=== PATIENT | male | born 1965 | race African-American/Black ===

== ENCOUNTER 2017-08-04 08:08 | Inpatient (IN) ==
[2017-08-04] MEDS ORDERED: HYDROmorphone 2 MG/1 ML VIAL IV STA (08:45)
[2017-08-04] MEDS ORDERED: ONDANSETRON 4 MG/2 ML VIAL IV STA ×2 (08:45→08:59)
[2017-08-04] MEDS ORDERED: ONDANSETRON 4 MG/2 ML VIAL ONE (08:46)
[2017-08-04] MEDS ORDERED: HYDROmorphone 2 MG/1 ML VIAL ONE (08:46)
--- NOTE | 2017-08-04 08:54 | Emergency Department Note ---
Arrival - Arrival Chief Complaint: Extremity Injury Stated Complaint: dislocated left shoulder ED Nursing Triage Note: was exercising last night and thinks he pulled his left shoulder out of socket. reports pain with movement. Mode of Arrival: Ambulatory Limitations: No Limitations Source: Patient, RN Notes Reviewed Time Seen by Provider: 08/04/17 08:26 - History of Present Illness HPI Narrative: Patient is a 52-year-old black male recently followed by Dr. Wild for multiple myeloma. The patient fell last night and felt a pop in his left shoulder. Patient complains of pain in his left shoulder. He denies any numbness or weakness in his left hand. Onset (ago): day(s) (1) Consistency: constant Severity: moderate Quality: aching Allergies/Adverse Reactions: Allergies Allergy/AdvReac Type Severity Reaction Status Date / Time No Known Allergies Allergy Verified 07/10/17 10:14 Home Medications: Home Medications Medication Instructions Recorded Confirmed Type Atenolol 50 mg PO BEDTIME 05/09/16 08/04/17 History Citalopram [CeleXA] 40 mg PO QPM 05/22/16 08/04/17 History Doxycycline Hyclate 100 mg PO Q12H #14 capsule 07/10/17 08/04/17 Rx Ketorolac Tab [Toradol Tab] 10 mg PO Q6H PRN #15 tablet 07/10/17 08/04/17 Rx oxyCODONE/ACETAMINOPHEN 5-325 1 tablet PO Q4H PRN #15 tablet 07/10/17 08/04/17 Rx [Percocet 5-325] Allopurinol 100 mg PO BEDTIME PRN 08/04/17 08/04/17 History Hydrocodone/Acetaminophen [[place] 1 each PO Q6HR PRN #20 tablet 08/04/17 Rx 10-325 Tablet] Review of System - Review of System 12 point system: reviewed and no additional remarkable complaints except as stated - Review of System Constitutional: Absent: chills, fever Respiratory: Absent: cough Cardiovascular: Absent: chest pain Gastrointestinal: Absent: nausea, vomiting Medical,Surgical,& Family Hx - Medical History Cardio: History of: Hypertension Psychological: History of: Depression Neurology: No history of: Seizures HEENT: History of: Eye Problem (GLASSES) Respiratory: No history of: Pneumonia (Pneum Vac 2015), Respiratory Problems (Unknown Flu Vac) Musculoskeletal: History of: Musculoskeletal Problems (Back Injection 2009) Hematology: History of: Hematologic Cancer (multiple myeloma-currently being treated) Other: History of: Cancer (MULTIPLE MYLOMA-Dr. Wild), Miscellaneous Medical Problems (STEM CELL TRANSPLANT [place]) No history of: Anesthesia Reactions - Surgical History Abdominal Surgeries: Patient denies: Colonoscopy Orthopedic Surgeries: Surgical HX of;: Orthopedic Surgery (05/26/16 Pinning Rt Arm) - Family History Family History: Reports;: Family Cancer (FATHER BONE), Family Heart Disease ( MOTHER), Family Hypertension (MOTHER SISTER BROTHER), Family Stroke (FATHER) - Social History Smoking Status: Smoker, status unknown Exam Vital Signs: Vital Signs Temperature 98.5 F 08/04/17 08:21 Pulse Rate 91 H 08/04/17 09:45 Respiratory Rate 18 08/04/17 09:45 Blood Pressure 157/103 08/04/17 09:45 O2 Sat by Pulse Oximetry 97 08/04/17 09:45 GENERAL: This is a well-nourished well-developed black male in no apparent distress. VITAL SIGNS: Reviewed HEENT: Head is atraumatic and normocephalic. Pupils are equal round react to light. Extraocular movements are intact. Oropharynx is benign with moist mucous membranes. NECK: Neck is soft and supple without tenderness. There are no masses. There is no lymphadenopathy. LUNGS: Lungs are clear to auscultation. Chest rises symmetrically. There is no chest wall tenderness. CV: Heart is regular rate and rhythm without murmurs rubs or gallops. ABDOMEN: Abdomen is soft, nontender to palpation. There are no abdominal abnormal masses palpated. There is no organomegaly. Bowel sounds are present and active. SKIN: Skin is warm and dry. No rash. EXTREMITIES: Patient has an obvious deformity of the left humerus. There is tenderness to palpation overlying the mid humerus on the left. With passive range of motion there is reproducible pain and some crepitus. There is no pedal edema. NEUROLOGIC: Awake alert and oriented 4. Cranial nerves II through XII are grossly intact. Motor is 5 over 5 in all extremities bilaterally. Course - Consultations Consultation #1: Discussed with Dr. Morgan. Patient will be placed in a long-arm splint. Time: 09:00 Consultation #2: Discussed with Dr. Wild. Patient will be admitted to his service. Initial orders written for him. Time: 09:04 Results - Labs CBC & BMP: 08/04/17 08:54 08/04/17 08:54 Lab Results: I have reviewed the patients labs - Diagnostic Findings Procedure: X-ray: image reviewed by me (Left humerus x-ray: There is a pathologic fracture of the humerus proximal third.) Disposition Clinical Impression: Multiple myeloma, Left humeral fracture, Anemia Case discussed with: patient, patient's family Disposition: Still a Patient Condition: Stable New Prescriptions: Rx's Medication Instructions Recorded Hydrocodone/Acetaminophen [[place] 1 each PO Q6HR PRN #20 tablet 08/04/17 10-325 Tablet] Time of Disposition: 08:58
--- NOTE | 2017-08-04 09:00 | XRay Report ---
XR shoulder 2V LT, XR humerus LT Indication: Shoulder pain, midshaft humerus fracture Comparison: None Technique: Frontal views of the left shoulder were obtained in internal and external rotation as well as an axillary view of the left shoulder. Frontal and lateral views of the left humerus. Findings: Acute, mildly displaced fracture involving the proximal diaphysis of the humerus with moderate lateral apex angulation. There is no glenohumeral dislocation. IMPRESSION: As above. PROCEDURE INTERPRETED AT [facility] DEPARTMENT OF RADIOLOGY Final Report Signed by: Dr Jos Ash
[2017-08-04 09:04] LABS: Eosinophils % 0.2 % (0.00-10.9); Hematocrit 26.8 VOL% (42.0-52.0); Hemoglobin 9.3 GM/DL (14.0-18.0); Immature Granulocytes % 1.6 %; Immature Granulocytes Absolute 0.14 #; Lymphocytes # 1.6 10*3/uL (1.4-4.0); Lymphocytes % 18.1 % (21.2-54.2); Mean Corpuscular HGB Conc 34.7 GM/DL (32-36); Mean Corpuscular Hemoglobin 25 PG (27-34); Mean Platelet Volume 9.7 FL (9.6-12.0); Monocytes # 1.4 10*3/uL (0.11-0.8); Monocytes % 16.7 % (1.7-12.7); NRBC # 0.06 10*3/uL; Neutrophils # 5.5 10*3/uL (1.4-7.4); Neutrophils % 63.4 % (38.7-73.9); Platelet Count 241 T/CUMM (130-400); Red Blood Count 3.67 MC/CUMM (3.8-5.5); Red Cell Distribution Width 19.7 % (9.3-17.3); White Blood Count 8.6 T/CUMM (4-12)
[2017-08-04 09:40] LABS: Hypochromasia 1+; Lymphocytes 20 % (20-55); Nucleated Red Blood Cells 1 (0-5); Segmented Neutrophils 67 % (50-85); Total Cells Counted 100
[2017-08-04 09:41] LABS: Microcytosis 1+; Platelet Estimate Normal
[2017-08-04 09:42] LABS: Albumin 3.4 G/DL (3.4-5.0); Bilirubin,Total 0.4 MG/DL (0.2-1.0); Calcium 8.6 MG/DL (8.5-10.1); Osmolality,Calculated 272.8 MOS/KG (273-304); Potassium 4.4 MMOL/L (3.5-5.1); Total Protein 7.2 G/DL (6.4-8.3)
[2017-08-04] MEDS ORDERED: ALUMINUM/MAGNES/SIMETH MAX STR 30 ML UDCUP PO PRN (10:43)
[2017-08-04] MEDS ORDERED: HYDROmorphone 2 MG/1 ML VIAL IV PRN (10:43)
[2017-08-04] MEDS ORDERED: ONDANSETRON 4 MG/2 ML VIAL IV PRN (10:43)
[2017-08-04] MEDS ORDERED: MAGNESIUM HYDROXIDE SUSP 30 ML UDCUP PO PRN (10:43)
[2017-08-04] MEDS ORDERED: chlorproMAZINE INJ 50 MG in SODIUM CHLORIDE 0.9% 100 ML IV PRN (10:43)
[2017-08-04] MEDS ORDERED: BENZTROPINE 2 MG/2 ML AMP IV PRN (10:43)
[2017-08-04] MEDS ORDERED: TEMAZEPAM 7.5 MG CAPSULE PO PRN (10:43)
[2017-08-04] MEDS ORDERED: chlorproMAZINE INJ 25 MG in SODIUM CHLORIDE 0.9% 100 ML IV PRN (10:43)
[2017-08-04] MEDS ORDERED: diphenhydrAMINE CAP 25 MG CAPSULE PO PRN (10:43)
[2017-08-04] MEDS ORDERED: MYLANTA/LIDO VISC 2:1 300 ML BOTTLE SWISH/SWAL PRN (10:43)
[2017-08-04] MEDS ORDERED: LOPERAMIDE 2 MG CAPSULE PO PRN ×2 (10:43)
[2017-08-04] MEDS ORDERED: PROMETHAZINE INJ 25 MG in SODIUM CHLORIDE 0.9% 50 ML IV PRN (10:43)
[2017-08-04] MEDS ORDERED: traMADol 50 MG TABLET PO PRN (10:43)
[2017-08-04] MEDS ORDERED: LACTULOSE 20 GM/30 ML UDCUP PO PRN (10:43)
[2017-08-04] MEDS ORDERED: MYLANTA/LIDO VISC 2:1 300 ML BOTTLE SWISH/SPIT PRN (10:43)
[2017-08-04] MEDS ORDERED: ACETAMINOPHEN 325 MG TABLET PO PRN (10:43)
[2017-08-04] MEDS ORDERED: ALPRAZolam 0.25 MG TABLET PO PRN (10:43)
[2017-08-04] MEDS ORDERED: guaiFENesin 200 MG/10 ML UDCUP PO PRN (10:43)
[2017-08-04] MEDS ORDERED: chlorproMAZINE 25 MG TABLET PO PRN (10:43)
[2017-08-04] MEDS ORDERED: INFLUENZA VIRUS VACCINE 0.5 ML SYRINGE IM ONE (11:01)
[2017-08-04] MEDS: SODIUM CHLORIDE 0.9% 1,000 ML IV SCH (11:28)
--- NOTE | 2017-08-04 11:38 | XRay Report ---
XR chest 1V Indication: Multiple myeloma Comparison: Chest x-ray dated July 10, 2017 Technique: Single frontal view of the chest. Findings: The cardiomediastinal silhouette is stable in configuration. Chronic change of the lungs without focal consolidation, pleural effusion, or pneumothorax. Visualized osseous and surrounding soft tissue structures appear grossly unchanged. IMPRESSION: No acute cardiopulmonary process demonstrated. PROCEDURE INTERPRETED AT [facility] DEPARTMENT OF RADIOLOGY Final Report Signed by: Dr Jos Ash
--- NOTE | 2017-08-04 18:02 | Orthopedic Consult Note ---
History of Present Illness Chief complaint: Left humerus fracture History of present illness: Mr. Singer is a 52 year old male with history of sudden onset pain deformity left upper arm he was doing minimal activity when this occurred he does have a history of myeloma and it does have a history of a previous pathologic fracture for the right arm which I treated with an intramedullary nail of the right humerus he went on to heal that uneventfully at that time he was a patient of Dr. Nahun Fernandes. He presented [facility] emergency room this morning x-rays confirming a pathologic fracture of the diaphysis left humerus she has been splinted and admitted to Dr. Donahue his oncologist have been asked about regarding his orthopedic injury. Examination confirms well-developed nourished male he has no pain about the right upper extremity or either lower extremity the left arm is in a long-arm posterior splint he has intact neurovascular exam including the ability to actively extend the the digits and thumb and unable to extend the wrist due to the splint he describes instabilities intact volar as well as dorsal hand X-rays confirm a diaphyseal fracture to the left humerus. It does appear to be pathologic. Impression: Pathologic fracture left humeral shaft Plan: I discussed with him the diagnosis and treatment options including risks benefits and alternatives to surgery as before I have recommended an intramedullary device this will allow for stabilization of the fracture as well as oncologic treatment to the pathologic lesion all of his questions were answered appears understand and agrees to proceed we will plan on this tomorrow a.m. thanks Home Medications Medication Instructions Recorded Confirmed Type Atenolol 50 mg PO BEDTIME 05/09/16 08/04/17 History Citalopram [CeleXA] 40 mg PO QPM 05/22/16 08/04/17 History Ketorolac Tab [Toradol Tab] 10 mg PO Q6H PRN #15 tablet 07/10/17 08/04/17 Rx oxyCODONE/ACETAMINOPHEN 5-325 1 tablet PO Q4H PRN #15 tablet 07/10/17 08/04/17 Rx [Percocet 5-325] Allopurinol 100 mg PO BEDTIME PRN 08/04/17 08/04/17 History Doxycycline Hyclate 100 mg PO Q12H 08/04/17 08/04/17 History Allergies Allergy/AdvReac Type Severity Reaction Status Date / Time No Known Allergies Allergy Verified 07/10/17 10:14 Medical,Surgical,& Family Hx - Medical History Cardio: History of: Hypertension Psychological: History of: Depression Neurology: No history of: Seizures HEENT: History of: Eye Problem (GLASSES) Respiratory: No history of: Pneumonia (Pneum Vac 2015), Respiratory Problems (Unknown Flu Vac) Musculoskeletal: History of: Musculoskeletal Problems (Back Injection 2009) Hematology: History of: Hematologic Cancer (multiple myeloma-currently being treated) Other: History of: Cancer (MULTIPLE MYLOMA-Dr. Wild), Miscellaneous Medical Problems (STEM CELL TRANSPLANT [place]) No history of: Anesthesia Reactions - Surgical History Abdominal Surgeries: Patient denies: Colonoscopy Orthopedic Surgeries: Surgical HX of;: Orthopedic Surgery (05/26/16 Pinning Rt Arm) - Family History Family History: Reports;: Family Cancer (FATHER BONE), Family Heart Disease ( MOTHER), Family Hypertension (MOTHER SISTER BROTHER), Family Stroke (FATHER) - Social History Smoking Status: Smoker, status unknown Exam - Constitutional Vitals: Period Temp Pulse Resp BP Sys/Gonzales Pulse Ox Last 24 Hr 96.3 F-98.5 F 85-92 18-20 141-192/93-104 94-99 Results - Labs CBC & BMP: 08/04/17 08:54 08/04/17 08:54
[2017-08-05] MEDS: SODIUM CHLORIDE 0.9% 1,000 ML IV SCH ×2 (00:57→16:56)
[2017-08-05 06:20] LABS: Apearance,Urine CLEAR (Clear); Bilirubin,Urine Negative (Negative); Blood, Urine Negative (Negative); Glucose,Urine (UA) Negative (Negative); Ketones,Urine Negative (Negative); Nitrite,Urine Negative (Negative); Protein,Urine Negative; Urine Color Colorless (Yellow); Urine Urobilinogen < 2.0 EU/DL (0.2-1.0); WBC,Urine <1 /HPF (0-6)
[2017-08-05] MEDS ORDERED: ceFAZolin 2,000 MG in SODIUM CHLORIDE 0.9% 100 ML IV ONE (08:00)
--- NOTE | 2017-08-05 08:48 | Oncology History&Physical ---
Assessment and Plan (1) Left humeral fracture Status: Acute Assessment and plan: Plan for surgical fixation today. Patient should be stable for discharge tomorrow. He will resume Velcade schedule next week as well as oncology clinic visits as previously scheduled. After an initial phase of surgical healing we will consider for left upper extremity radiotherapy. Current Visit: Yes History of Present Illness Chief complaint: Broken arm History of present illness: Mr. Singer is a 52 year old male With a multiple year history of multiple myeloma who presented yesterday to the emergency department with left upper extremity fracture. He states this occurred while exercising and doing jumping jacks. His myeloma was originally diagnosed around 2010 or 2011. He has a history of autologous transplantation around 2012 at [facility] in [place]. 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 Approximately 6 weeks ago he was changed to second line Velcade after receiving many years of Revlimid oral therapy. He has rising gammaglobulins as of late. Planning for surgical fixation later this morning. No known significant cardiopulmonary issues. Home Medications Medication Instructions Recorded Confirmed Type Atenolol 50 mg PO BEDTIME 05/09/16 08/04/17 History Citalopram [CeleXA] 40 mg PO QPM 05/22/16 08/04/17 History Ketorolac Tab [Toradol Tab] 10 mg PO Q6H PRN #15 tablet 07/10/17 08/04/17 Rx oxyCODONE/ACETAMINOPHEN 5-325 1 tablet PO Q4H PRN #15 tablet 07/10/17 08/04/17 Rx [Percocet 5-325] Allopurinol 100 mg PO BEDTIME PRN 08/04/17 08/04/17 History Doxycycline Hyclate 100 mg PO Q12H 08/04/17 08/04/17 History Allergies Allergy/AdvReac Type Severity Reaction Status Date / Time No Known Allergies Allergy Verified 07/10/17 10:14 Medical,Surgical,& Family Hx - Medical History Cardio: History of: Hypertension Psychological: History of: Depression Neurology: No history of: Seizures HEENT: History of: Eye Problem (GLASSES) Respiratory: No history of: Pneumonia (Pneum Vac 2015), Respiratory Problems (Unknown Flu Vac) Musculoskeletal: History of: Musculoskeletal Problems (Back Injection 2009) Hematology: History of: Hematologic Cancer (multiple myeloma-currently being treated) Other: History of: Cancer (MULTIPLE MYLOMA-Dr. Wild), Miscellaneous Medical Problems (STEM CELL TRANSPLANT [place]) No history of: Anesthesia Reactions - Surgical History Abdominal Surgeries: Patient denies: Colonoscopy Orthopedic Surgeries: Surgical HX of;: Orthopedic Surgery (05/26/16 Pinning Rt Arm) - Family History Family History: Reports;: Family Cancer (FATHER BONE), Family Heart Disease ( MOTHER), Family Hypertension (MOTHER SISTER BROTHER), Family Stroke (FATHER) - Social History Smoking Status: Smoker, status unknown - Constitutional Constitutional: Absent: fever(s) - EENT Eye: Absent: blurry vision Ears: Absent: decreased hearing Nose, mouth and throat: Absent: dizziness, dysphagia, epistaxis - Cardiovascular Cardiovascular ROS IM: Absent: chest pain - Respiratory Respiratory: Absent: cough Exam - Constitutional Vitals: Period Temp Pulse Resp BP Sys/Gonzales Pulse Ox Last 24 Hr 96.3 F-98.3 F 83-103 18-20 108-192/65-103 94-99 General appearance: normal weight, no acute distress - Head Head Exam: Present: normal inspection, normocephalic - Eye Eye Exam: Present: EOMI. Absent: conjunctival injection Pupils: Present: PERRL, normal accommodation - ENT ENT exam: Present: normal external ear exam - Neck Neck exam: Present: normal inspection. Absent: lymphadenopathy - Respiratory Respiratory exam: Present: CTAB. Absent: accessory muscle use - Cardiovascular Cardiovascular exam: Present: RRR. Absent: systolic murmur - GI/Abdominal GI/Abdominal exam: Absent: ascites, distended - Extremities Exam Extremities exam: Present: other (Left arm with soft splint in place) - Neurological Exam Neurological exam: Present: alert, oriented X3, CN II-XII intact - Psychiatric Psychiatric exam: Absent: anxious - Skin Skin exam: Present: warm, dry Results - Labs CBC & BMP: 08/04/17 08:54 08/04/17 08:54
[2017-08-05] MEDS ORDERED: MAGNESIUM HYDROXIDE SUSP 30 ML UDCUP PO PRN (10:41)
--- NOTE | 2017-08-05 10:41 | Operative Note ---
Date of procedure: 08/05/17 Pre-op diagnosis: Pathologic fracture left humerus Post-op diagnosis: same Procedure: Intramedullary nailing left humerus fracture Surgeon / Physician: Travis Morgan Jr. Results - Labs CBC & BMP: 08/04/17 08:54 08/04/17 08:54 Discharge Plan - Discharge Medications No Action Atenolol 50 mg PO BEDTIME Citalopram [CeleXA] 40 mg PO QPM Ketorolac Tab [Toradol Tab] 10 mg PO Q6H PRN #15 tablet PRN Reason: moderate to severe pain oxyCODONE/ACETAMINOPHEN 5-325 [Percocet 5-325] 1 tablet PO Q4H PRN #15 tablet PRN Reason: Pain Severe (8-10) Doxycycline Hyclate 100 mg PO Q12H Allopurinol 100 mg PO BEDTIME PRN PRN Reason: Gout - Follow Up or Referral - Forms/Instructions
--- NOTE | 2017-08-05 11:02 | Anesthesia Post-Op ---
Anesthesia Post OP - Post Ansesthetic Evaluation Patient seen in post op: Yes Resp: within normal limits CV: within normal limits Mental: within normal limits Temp: within normal limits [id number]: within normal limits Nausea and Vomiting: within normal limits Pain: within normal limits
--- NOTE | 2017-08-05 12:53 | Orthopedic Progress Note ---
Orthopedics - Subjective Interval history: Comfortable postop has good block but is able to actively flex and extend all digits. Discussed with him the procedure went well. Pain control tonight. As block wears off Exam - Constitutional Vitals: Period Temp Pulse Resp BP Sys/Gonzales Pulse Ox Last 24 Hr 96.3 F-98.4 F 83-103 15-20 106-143/65-93 94-100 Results - Labs CBC & BMP: 08/04/17 08:54 08/04/17 08:54
--- NOTE | 2017-08-05 15:27 | Operative Note ---
DATE: 08/05/2017 PREOPERATIVE DIAGNOSIS: PATHOLOGIC FRACTURE, LEFT HUMERUS. POSTOPERATIVE DIAGNOSIS: SAME. OPERATIVE PROCEDURE: INTRAMEDULLARY NAILING, PATHOLOGIC FRACTURE, LEFT HUMERUS. SURGEON: Travis Morgan Jr., MD ANESTHESIA: General. INDICATIONS: A 52-year-old black male, sustained a pathological fracture to diaphysis of left humeru s yesterday. He has had a similar process happened on the right side previously. I have discussed w ith him preoperatively, the need for intramedullary fixation. He presents for procedure. OPERATIVE PROCEDURE: The patient was taken to the operating room and under general anesthetic, posit ioned in a beach-chair type position. The left upper extremity and shoulder region was prepped and d raped in a usual sterile manner. He received Ancef preoperatively. A small incision was made over t he deltoid acromion region as well direct dissection down to this cuff, which was split and a startin g point was obtained in the proximal humerus. A guide pin was passed across the fracture site and di stal fragment. The proximal staring hole reamed to 10 mm. A 9/240 nail was inserted. It was locked proximally x1 with the spiral blade and distally with a locking bolt. Reduction and internal fixati on was felt to be satisfactory. All wounds were irrigated and closed in a standard fashion including 0 Vicryl for the deltoid and cuff split, 2-0 Vicryl for the subcutaneous layer and josefa for skin. Josefa also used for the locking bolts. He was placed in a arm sling after sterile dressing appli cation, taken to recovery room in a stable condition.
[2017-08-06] MEDS: SODIUM CHLORIDE 0.9% 1,000 ML IV SCH (07:30)
[2017-08-06 07:47] VITALS: BP 112/69
--- NOTE | 2017-08-06 08:44 | Orthopedic Progress Note ---
Orthopedics - Subjective Interval history: Comfortable neurovascular intact discharge instructions given follow-up me 10 days Exam - Constitutional Vitals: Period Temp Pulse Resp BP Sys/Gonzales Pulse Ox Last 24 Hr 97.3 F-100.6 F 86-108 15-22 93-137/51-79 90-100 Results - Labs CBC & BMP: 08/04/17 08:54 08/04/17 08:54
--- NOTE | 2017-08-06 09:11 | Discharge Summary ---
Hospital Course - Hospital Course Hospital Course: 52-year-old black male with long-standing multiple myeloma who was admitted with a left humerus fracture. He underwent orthopedic repair 2 days ago. He is ready for discharge home today. He already has scheduled follow-up with both orthopedics and hematology. I will send him home with pain medicines. Discharge Plan - Discharge Data Disposition: Disch To Home/Self Care Condition at Discharge: Stable Discharge Diet: advance to your usual diet Activity: resume usual activities as tolerated Weight Bearing at Discharge: full weight bearing - Discharge Medications Continue Atenolol 50 mg PO BEDTIME Citalopram [CeleXA] 40 mg PO QPM Ketorolac Tab [Toradol Tab] 10 mg PO Q6H PRN #15 tablet PRN Reason: moderate to severe pain Doxycycline Hyclate 100 mg PO Q12H Allopurinol 100 mg PO BEDTIME PRN PRN Reason: Gout oxyCODONE/ACETAMINOPHEN 5-325 [Percocet 5-325] 1 tablet PO Q4H PRN #30 tablet PRN Reason: Pain Severe (8-10) - Follow Up or Referral - Forms/Instructions Exam - Constitutional Vitals: Period Temp Pulse Resp BP Sys/Gonzales Pulse Ox Last 24 Hr 97.3 F-100.6 F 86-108 15-22 93-137/51-79 90-100 DS: Provider Date of admission: 08/04/17 09:04 Primary care physician: Bubba Wild MD Attending physician on admission: Bubba Wild MD Consults: 08/04/17 10:43 Consult to Physician [CONS] Routine Comment: L humerus fracture, mult myeloma Consulting Provider: Travis Morgan Jr. Consulting Provider Notified: Yes When should Consulting Provider be notified: Now Consult to Specialist Group: Orthopedic When should Consulting Provider be notified: Now Person Notified: MILKA Date Notified: 08/04/17 Time Notified: 10:46 08/05/17 10:41 Consult to Physical Therapy [CONS] Routine Reason for Physical Therapy: Evaluate and Treat Consult Comment: WBAT 08/05/17 10:43 Consult to Case Mgmt/Social Srvs [CONS] Routine Reason for Case Mgmt/Social Srvs: Home Health Rehab Equipment Consult to Occupational Therapy [CONS] Routine Reason for Occupational Therapy: Evaluate and Treat Consult Comment: Sling gentle elbow range of motion and shoulder pendulum exercises shayna nance Discharging clinician: Doc Nunez MD
[2017-08-06] MEDS ORDERED: INFLUENZA VIRUS VACCINE 0.5 ML SYRINGE IM ONE (10:30)
== END 2017-08-06 11:30 | disposition home health service (06) | DRG 493 ==
LOC: N.ED 08:08 → N.EDINP 09:04 → N.4E 10:18
PROVIDERS: ADMIT Specialist; ATTEND Specialist

== ENCOUNTER 2019-09-05 14:36 | Inpatient (IN) ==
[2019-09-05] MEDS ORDERED: SODIUM CHLORIDE 0.9% 1,000 ML IV STA (15:22)
[2019-09-05 15:40] LABS: Basophils % 0.3 % (0.0-0.8); Eosinophils % 0.1 % (0.00-10.9); Hematocrit 41.3 VOL% (42.0-52.0); Hemoglobin 14.2 GM/DL (14.0-18.0); Immature Granulocytes % 1.5 %; Immature Granulocytes Absolute 0.21 #; Lymphocytes # 0.9 10*3/uL (1.4-4.0); Lymphocytes % 6.4 % (21.2-54.2); Mean Corpuscular HGB Conc 34.4 GM/DL (32-36); Mean Corpuscular Volume 84.1 FL (87-102); Mean Platelet Volume 10.3 FL (9.6-12.0); Monocytes % 13.7 % (1.7-12.7); NRBC # 0.04 10*3/uL; Platelet Count 283 T/CUMM (130-400); Red Blood Count 4.91 MC/CUMM (3.8-5.5); White Blood Count 13.8 T/CUMM (4-12)
[2019-09-05 15:49] LABS: Alanine Aminotransferase 24 U/L (16-61); Albumin 4.2 G/DL (3.4-5.0); Alkaline Phosphatase 62 U/L (45-117); Aspartate Amino Transferase 17 U/L (0-37); Bilirubin,Total < 0.39 MG/DL (0.2-1.0); Blood Urea Nitrogen 12 MG/DL (7-18); Estimated Glom Filtration Rate 37 ML/MIN; Glucose 96 MG/DL (74-106); Osmolality,Calculated 269.1 MOS/KG (273-304); Total Protein 8.8 G/DL (6.4-8.3)
[2019-09-05] MEDS ORDERED: ONDANSETRON 4 MG/2 ML VIAL IV PRN (17:36)
[2019-09-05] MEDS ORDERED: SODIUM CHLORIDE 0.9% 500 ML IV ONE (17:36)
[2019-09-05] MEDS: MORPHINE 4 MG/1 ML VIAL IV PRN (19:36)
[2019-09-05] MEDS: SODIUM CHLORIDE 0.9% 1,000 ML IV SCH (20:38)
[2019-09-05] MEDS: PIPERACILLIN/TAZOBACTAM 3,375 MG in SODIUM CHLORIDE 0.9% 100 ML IV SCH (21:18)
[2019-09-05] MEDS: ENOXAPARIN 40 MG/0.4 ML SYRINGE SUBCUT SCH (22:02)
[2019-09-05 23:13] LABS: Apearance,Urine CLOUDY (Clear); Bacteria,Urine Occasional /HPF (Few); Bilirubin,Urine Negative (Negative); Blood, Urine Small mg/dL (Negative); Glucose,Urine (UA) Negative (Negative); Hyaline Casts,Urine 164 /LPF (0-3); Ketones,Urine Negative (Negative); Mucus,Urine Few /LPF (Occasional); Nitrite,Urine Negative (Negative); Protein,Urine 30 MG/DL; RBC,Urine 5 /HPF (0-4); Renal Epithelial Cells,Urine Occasional /HPF (<1); Squamous Epithelial Cell,Urine Occasional /HPF (0-10); Urine Color Yellow (Yellow); Urine Specific Gravity 1.017 (1.001-1.035); Urine Urobilinogen < 2.0 EU/DL (0.2-1.0); WBC,Urine 205 /HPF (0-6)
[2019-09-06] MEDS: VANCOMYCIN INJ 1,250 MG in SODIUM CHLORIDE 0.9% 250 ML IV SCH (01:32)
[2019-09-06] MEDS: SODIUM CHLORIDE 0.9% 1,000 ML IV SCH ×3 (03:23→22:15)
[2019-09-06] MEDS: PIPERACILLIN/TAZOBACTAM 3,375 MG in SODIUM CHLORIDE 0.9% 100 ML IV SCH ×3 (03:23→17:22)
[2019-09-06 04:45] LABS: Basophils % 0.3 % (0.0-0.8); Eosinophils % 0.5 % (0.00-10.9); Hemoglobin 12.9 GM/DL (14.0-18.0); Immature Granulocytes % 1.3 %; Lymphocytes # 0.6 10*3/uL (1.4-4.0); Lymphocytes % 8.5 % (21.2-54.2); Mean Corpuscular HGB Conc 34.9 GM/DL (32-36); Mean Corpuscular Volume 83.9 FL (87-102); Mean Platelet Volume 9.4 FL (9.6-12.0); Monocytes % 14.5 % (1.7-12.7); NRBC # 0.02 10*3/uL; Neutrophils % 74.9 % (38.7-73.9); Platelet Count 201 T/CUMM (130-400); Red Blood Count 4.41 MC/CUMM (3.8-5.5); Red Cell Distribution Width 13.8 % (9.3-17.3); White Blood Count 7.5 T/CUMM (4-12)
[2019-09-06 05:15] LABS: Albumin 3.4 G/DL (3.4-5.0); Bilirubin,Total 0.7 MG/DL (0.2-1.0); Calcium 8.2 MG/DL (8.5-10.1); Osmolality,Calculated 271.2 MOS/KG (273-304); Thyroid Stimulating Hormone 1.17 uIU/ml (0.358-3.74); Total Protein 7.1 G/DL (6.4-8.3)
[2019-09-06] MEDS: MORPHINE 4 MG/1 ML VIAL IV PRN ×3 (08:44→22:06)
[2019-09-06] MEDS: PANTOPRAZOLE 40 MG TABLET PO SCH (08:45)
[2019-09-06] MEDS: busPIRone 10 MG TABLET PO SCH ×2 (08:45→22:00)
[2019-09-06] MEDS: POTASSIUM CHLORIDE 20 MEQ TABLET PO PRN ×3 (08:45→17:23)
[2019-09-06] MEDS: CITALOPRAM 20 MG TABLET PO SCH (08:45)
[2019-09-06] MEDS: URSODIOL 300 MG CAPSULE PO SCH ×2 (08:45→22:00)
[2019-09-06] MEDS: ENOXAPARIN 40 MG/0.4 ML SYRINGE SUBCUT SCH (22:00)
[2019-09-07] MEDS: VANCOMYCIN INJ 1,250 MG in SODIUM CHLORIDE 0.9% 250 ML IV SCH (02:35)
[2019-09-07] MEDS: PIPERACILLIN/TAZOBACTAM 3,375 MG in SODIUM CHLORIDE 0.9% 100 ML IV SCH ×2 (02:51→10:05)
[2019-09-07] MEDS: MORPHINE 4 MG/1 ML VIAL IV PRN ×2 (02:58→10:30)
[2019-09-07 05:23] LABS: Basophils % 0.5 % (0.0-0.8); Eosinophils # 0.1 10*3/uL (0.0-0.87); Eosinophils % 1.4 % (0.00-10.9); Hematocrit 31.3 VOL% (42.0-52.0); Hemoglobin 10.7 GM/DL (14.0-18.0); Immature Granulocytes % 1.6 %; Immature Granulocytes Absolute 0.09 #; Lymphocytes # 0.7 10*3/uL (1.4-4.0); Lymphocytes % 12.5 % (21.2-54.2); Mean Corpuscular HGB Conc 34.2 GM/DL (32-36); Mean Corpuscular Volume 84.8 FL (87-102); Mean Platelet Volume 9.3 FL (9.6-12.0); Monocytes % 13.2 % (1.7-12.7); NRBC # 0.02 10*3/uL; Neutrophils % 70.8 % (38.7-73.9); Platelet Count 178 T/CUMM (130-400); Red Blood Count 3.69 MC/CUMM (3.8-5.5); Red Cell Distribution Width 13.6 % (9.3-17.3); White Blood Count 5.6 T/CUMM (4-12)
[2019-09-07 05:45] LABS: Albumin 2.6 G/DL (3.4-5.0); Bilirubin,Total 0.4 MG/DL (0.2-1.0); Calcium 7.7 MG/DL (8.5-10.1); Osmolality,Calculated 279.3 MOS/KG (273-304); Total Protein 5.8 G/DL (6.4-8.3)
[2019-09-07] MEDS: busPIRone 10 MG TABLET PO SCH (08:26)
[2019-09-07] MEDS: URSODIOL 300 MG CAPSULE PO SCH (08:26)
[2019-09-07] MEDS: CITALOPRAM 20 MG TABLET PO SCH (08:26)
[2019-09-07] MEDS: SODIUM CHLORIDE 0.9% 1,000 ML IV SCH ×2 (08:27→10:06)
[2019-09-07] MEDS: PANTOPRAZOLE 40 MG TABLET PO SCH (08:27)
[2019-09-07 08:57] VITALS: BP 125/82
== END 2019-09-07 12:25 | disposition home or self-care (01) | DRG 872 ==
LOC: EDBD → EDUNIT# → N.ED 14:36 → SUATTDRO 17:36 → N.EDINP 17:36 → N.4E 18:11
PROVIDERS: ADMIT Internal Medicine; ATTEND Internal Medicine Nephrology